=== PATIENT | male | born 1955 | race Caucasian/White ===

== ENCOUNTER 2017-06-23 13:39 | Inpatient (IN) | payer MEDICARE, MEDICAID ==
[~2017-06-23] VITALS: Ht 182.9 cm; Wt 101.2 kg
[2017-06-23] MEDS ORDERED: [UNRECOGNIZED DRUG - CODE] PO (14:58)
[2017-06-23] MEDS ORDERED: BENZ0.5T6 PO (14:58)
[2017-06-23] MEDS ORDERED: CLON2 PO (14:58)
[2017-06-23] MEDS ORDERED: DSS100 PO (14:58)
[2017-06-23] MEDS ORDERED: QUET400T PO (14:58)
[2017-06-23 18:29] LABS: BASOPHILS # (AUTO) 0.02 K/uL (0.00-0.20); BASOPHILS % (AUTO) 0.3 % (0.0-2.0); EOSINOPHILS # (AUTO) 0.14 K/uL (0.00-0.70); EOSINOPHILS % (AUTO) 2.05 % (1.0-6.0); HEMATOCRIT 38.2 % (41-53); HEMOGLOBIN 12.6 g/dL (13.5-17.5); LYMPHOCYTES # (AUTO) 0.9 K/uL (1.0-4.8); MEAN CORPUSCULAR HEMOGLOBIN 31.7 pg (26.0-34.0); MEAN CORPUSCULAR HGB CONC 32.8 G/dL (31.0-37.0); MEAN CORPUSCULAR VOLUME 96 fL (80-100); MONOCYTES % (AUTO) 15.6 % (2.0-9.0); NEUTROPHILS # (AUTO) 4.5 K/uL (1.8-7.7); NEUTROPHILS % (AUTO) 68.1 % (40.0-70.0); PLATELET COUNT (AUTO) 142 K/uL (150-450); RED BLOOD CELL COUNT(AUTO) 3.97 MIL/uL (4.50-5.90)
[2017-06-23 18:44] LABS: ANION GAP 9 mmol/L (8-16); CALCIUM, TOTAL 9.1 mg/dL (8.8-10.5); CARBON DIOXIDE 30 mmol/L (22-29); CHLORIDE 100 mmol/L (98-107); CREATININE 1.54 mg/dL (0.60-1.30); GLOMERULAR FILTR. RATE CALC 46 mL/min (>60); GLUCOSE,RANDOM 113 mg/dL (70-110); POTASSIUM 3.7 mmol/L (3.5-5.1); SODIUM SERUM 139 mmol/L (136-145); UREA NITROGEN, BLOOD 15 mg/dL (7-18)
[2017-06-23 18:50] LABS: ALANINE AMINOTRANSFERASE 45 U/L (12-78); ALBUMIN 3.5 g/dL (3.4-5.0); ALKALINE PHOSPHATASE 111 U/L (46-116); ASPARTATE AMINOTRANSFERASE 39 U/L (15-37); BILIRUBIN,TOTAL 0.3 mg/dL (0.1-1.0); TOTAL PROTEIN, SERUM 7.2 g/dL (6.4-8.2)
[2017-06-23] MEDS ORDERED: LORazepam 2 MG/ML VIAL IM ONE (19:15)
[2017-06-23] MEDS ORDERED: HALOPERIDOL LACTATE 5 MG/ML VIAL IM ONE (19:15)
[2017-06-23 20:42] VITALS: BP 152/82
[2017-06-23] MEDS ORDERED: ACETAMINOPHEN 325 MG TABLET PO PRN (22:15)
[2017-06-23] MEDS ORDERED: BACITRACIN 28.4 GM OINTMENT TP PRN (22:15)
[2017-06-24 02:46] VITALS: BP 135/88
[2017-06-24] MEDS: LORazepam 2 MG TABLET PO PRN ×2 (05:32→09:37)
[2017-06-24] MEDS: HALOPERIDOL 5 MG TABLET PO PRN ×2 (05:34→09:37)
[2017-06-24 08:08] VITALS: BP 124/72
[2017-06-24] MEDS ORDERED: ONDANSETRON HCL 4 MG TABLET PO PRN (08:30)
[2017-06-24] MEDS ORDERED: ALBUTEROL SULFATE HFA 90 MCG/PUFF 8 GM INHALER IH PRN (08:30)
[2017-06-24 08:32] LABS: CHOL/HDL RATIO 3.5 (4.2-7.3)
[2017-06-24] MEDS ORDERED: NICOTINE 21 MG/24 HOUR PATCH TD SCH (09:00)
[2017-06-24] MEDS: DOCUSATE SODIUM 250 MG CAPSULE PO SCH ×2 (09:37→16:31)
[2017-06-24] MEDS: NYSTATIN 15 GM POWDER BOTTLE TP SCH ×2 (09:38→16:31)
[2017-06-24] MEDS ORDERED: MAGNESIUM CITRATE 300 ML ORAL SOLUTION PO ONE ×2 (13:30→22:45)
[2017-06-24] MEDS: IBUPROFEN 600 MG TABLET PO PRN ×2 (14:43→20:48)
[2017-06-24 16:00] VITALS: BP 136/84
[2017-06-24] MEDS: ZOLPIDEM TARTRATE 10 MG TABLET PO PRN (20:48)
[2017-06-25 01:54] VITALS: BP 127/84
[2017-06-25] MEDS: IBUPROFEN 600 MG TABLET PO PRN ×2 (05:06→12:43)
[2017-06-25 08:27] VITALS: BP 140/67
[2017-06-25] MEDS: DOCUSATE SODIUM 250 MG CAPSULE PO SCH ×2 (09:04→16:52)
[2017-06-25] MEDS: QUEtiapine FUMARATE 200 MG TABLET PO SCH ×2 (09:04→16:52)
[2017-06-25] MEDS: LORazepam 2 MG TABLET PO PRN ×3 (09:05→17:07)
[2017-06-25] MEDS: NICOTINE POLACRILEX 2 MG LOZENGE PO PRN ×3 (09:06→16:23)
[2017-06-25] MEDS: NYSTATIN 15 GM POWDER BOTTLE TP SCH ×2 (09:06→16:52)
[2017-06-25 09:41] LABS: CALCIUM, TOTAL 9.4 mg/dL (8.8-10.5); CREATININE 1.71 mg/dL (0.60-1.30); POTASSIUM 4.6 mmol/L (3.5-5.1)
[2017-06-25 16:00] VITALS: BP 118/65
[2017-06-26] MEDS: LORazepam 2 MG TABLET PO PRN ×4 (00:01→16:55)
[2017-06-26] MEDS: ZOLPIDEM TARTRATE 10 MG TABLET PO PRN ×2 (00:01→20:54)
[2017-06-26] MEDS: HALOPERIDOL 5 MG TABLET PO PRN ×2 (00:01→17:30)
[2017-06-26 00:02] VITALS: BP 140/90
[2017-06-26] MEDS: IBUPROFEN 600 MG TABLET PO PRN (06:13)
[2017-06-26] MEDS: DOCUSATE SODIUM 250 MG CAPSULE PO SCH ×2 (08:26→16:55)
[2017-06-26] MEDS: QUEtiapine FUMARATE 200 MG TABLET PO SCH ×2 (08:26→16:54)
[2017-06-26] MEDS: NYSTATIN 15 GM POWDER BOTTLE TP SCH ×2 (08:29→16:57)
[2017-06-26 08:33] VITALS: BP 131/75
[2017-06-26] MEDS: NICOTINE POLACRILEX 2 MG LOZENGE PO PRN ×3 (09:18→17:51)
[2017-06-26 16:53] VITALS: BP 129/79
[2017-06-27 03:06] VITALS: BP 131/98
[2017-06-27] MEDS: IBUPROFEN 600 MG TABLET PO PRN ×2 (03:07→16:36)
[2017-06-27] MEDS: HALOPERIDOL 5 MG TABLET PO PRN ×2 (03:45→16:36)
[2017-06-27] MEDS: LORazepam 2 MG TABLET PO PRN ×3 (03:45→16:36)
[2017-06-27 08:00] VITALS: BP 129/88
[2017-06-27 08:15] LABS: CALCIUM, TOTAL 8.9 mg/dL (8.8-10.5); CREATININE 1.78 mg/dL (0.60-1.30)
[2017-06-27] MEDS: NYSTATIN 15 GM POWDER BOTTLE TP SCH ×2 (08:31→16:36)
[2017-06-27] MEDS: DOCUSATE SODIUM 250 MG CAPSULE PO SCH ×2 (08:31→16:36)
[2017-06-27] MEDS: QUEtiapine FUMARATE 200 MG TABLET PO SCH ×2 (08:31→16:36)
[2017-06-27 08:33] LABS: POTASSIUM 4.6 mmol/L (3.5-5.1)
[2017-06-27 10:15] VITALS: BP 130/88
[2017-06-27 16:34] VITALS: BP 127/83
[2017-06-27] MEDS: RisperiDONE 3 MG TABLET PO SCH (16:36)
[2017-06-27] MEDS: ZOLPIDEM TARTRATE 10 MG TABLET PO PRN (20:26)
[2017-06-27] MEDS ORDERED: DiphenhydrAMINE HCL 50 MG/ML VIAL ONE (22:34)
[2017-06-27] MEDS ORDERED: LORazepam 2 MG/ML VIAL ONE (22:34)
[2017-06-27] MEDS ORDERED: HALOPERIDOL LACTATE 5 MG/ML VIAL ONE (22:35)
[2017-06-27] MEDS ORDERED: LORazepam 2 MG/ML VIAL IM ONE (22:45)
[2017-06-27] MEDS ORDERED: DiphenhydrAMINE HCL 50 MG/ML VIAL IM ONE (22:45)
[2017-06-27] MEDS ORDERED: HALOPERIDOL LACTATE 5 MG/ML VIAL IM ONE (22:45)
[2017-06-28] MEDS: LORazepam 2 MG TABLET PO PRN ×4 (00:02→17:01)
[2017-06-28] MEDS: IBUPROFEN 600 MG TABLET PO PRN ×2 (00:02→06:08)
[2017-06-28] MEDS: HALOPERIDOL 5 MG TABLET PO PRN ×3 (00:02→17:01)
[2017-06-28 06:09] VITALS: BP 128/72
[2017-06-28 08:07] VITALS: BP 126/84
[2017-06-28] MEDS: DOCUSATE SODIUM 250 MG CAPSULE PO SCH ×2 (08:26→17:00)
[2017-06-28] MEDS: RisperiDONE 3 MG TABLET PO SCH ×2 (08:26→17:01)
[2017-06-28] MEDS: LITHIUM CARBONATE 300 MG CAPSULE PO SCH ×2 (08:26→17:01)
[2017-06-28] MEDS: QUEtiapine FUMARATE 200 MG TABLET PO SCH ×2 (08:27→17:01)
[2017-06-28 08:44] LABS: AMPHET/METH SCREEN,URINE NEGATIVE (NEGATIVE); BARBITURATE SCREEN, URINE NEGATIVE (NEGATIVE); BENZODIAZEPINES SCREEN,URINE NEGATIVE (NEGATIVE); CANNABINOID SCREEN,URINE NEGATIVE (NEGATIVE); COCAINE SCREEN,URINE NEGATIVE (NEGATIVE); METHADONE SCREEN, URINE NEGATIVE (NEGATIVE); OPIATE SCREEN,URINE NEGATIVE (NEGATIVE)
[2017-06-28 08:46] LABS: PHENCYCLIDINE SCREEN,URINE NEGATIVE (NEGATIVE)
[2017-06-28] MEDS: NYSTATIN 15 GM POWDER BOTTLE TP SCH ×2 (09:33→17:02)
[2017-06-28 16:32] VITALS: BP 125/81
[2017-06-28] MEDS: ZOLPIDEM TARTRATE 10 MG TABLET PO PRN (20:34)
[2017-06-29] MEDS: HALOPERIDOL 5 MG TABLET PO PRN ×3 (00:50→17:16)
[2017-06-29] MEDS: LORazepam 2 MG TABLET PO PRN ×3 (00:50→17:16)
[2017-06-29] MEDS: IBUPROFEN 600 MG TABLET PO PRN (00:50)
[2017-06-29 00:51] VITALS: BP 139/80
[2017-06-29] MEDS: QUEtiapine FUMARATE 200 MG TABLET PO SCH ×2 (08:09→17:16)
[2017-06-29] MEDS: NYSTATIN 15 GM POWDER BOTTLE TP SCH ×2 (08:09→17:16)
[2017-06-29] MEDS: LITHIUM CARBONATE 300 MG CAPSULE PO SCH ×2 (08:09→17:16)
[2017-06-29] MEDS: RisperiDONE 3 MG TABLET PO SCH ×2 (08:09→17:16)
[2017-06-29] MEDS: DOCUSATE SODIUM 250 MG CAPSULE PO SCH ×2 (08:09→17:16)
[2017-06-29 08:13] VITALS: BP 131/86
[2017-06-29 09:16] LABS: CALCIUM, TOTAL 9.1 mg/dL (8.8-10.5); CREATININE 1.57 mg/dL (0.60-1.30); POTASSIUM 4.1 mmol/L (3.5-5.1)
[2017-06-29] MEDS ORDERED: LORazepam 2 MG/ML VIAL IM ONE (12:45)
[2017-06-29] MEDS ORDERED: HALOPERIDOL LACTATE 5 MG/ML VIAL IM ONE (12:45)
[2017-06-29] MEDS ORDERED: DiphenhydrAMINE HCL 50 MG/ML VIAL IM ONE (12:45)
[2017-06-29] MEDS ORDERED: METH-417 PO (13:05)
[2017-06-29 17:13] VITALS: BP_SYST 106; BP_SYST 126; BP_DIAS 61; BP_DIAS 67
[2017-06-30] MEDS ORDERED: HALOPERIDOL LACTATE 5 MG/ML VIAL ONE ×2 (00:57→14:28)
[2017-06-30] MEDS ORDERED: LORazepam 2 MG/ML VIAL ONE ×2 (00:57→14:28)
[2017-06-30] MEDS ORDERED: DiphenhydrAMINE HCL 50 MG/ML VIAL ONE ×2 (00:58→14:29)
[2017-06-30] MEDS ORDERED: LORazepam 2 MG/ML VIAL IM ONE ×2 (01:15→14:45)
[2017-06-30] MEDS ORDERED: HALOPERIDOL LACTATE 5 MG/ML VIAL IM ONE ×2 (01:15→14:45)
[2017-06-30] MEDS ORDERED: DiphenhydrAMINE HCL 50 MG/ML VIAL IM ONE ×2 (01:15→14:45)
[2017-06-30 08:10] VITALS: BP 132/78
[2017-06-30] MEDS: QUEtiapine FUMARATE 200 MG TABLET PO SCH ×2 (08:34→16:55)
[2017-06-30] MEDS: LITHIUM CARBONATE 300 MG CAPSULE PO SCH ×2 (08:34→16:55)
[2017-06-30] MEDS: RisperiDONE 3 MG TABLET PO SCH ×2 (08:34→16:55)
[2017-06-30] MEDS: DOCUSATE SODIUM 250 MG CAPSULE PO SCH ×2 (08:34→16:55)
[2017-06-30] MEDS: NYSTATIN 15 GM POWDER BOTTLE TP SCH ×2 (08:40→16:55)
[2017-06-30 08:50] LABS: CALCIUM, TOTAL 9.4 mg/dL (8.8-10.5); CREATININE 1.56 mg/dL (0.60-1.30); POTASSIUM 4.1 mmol/L (3.5-5.1)
[2017-06-30 15:30] VITALS: BP 144/65
[2017-06-30 16:00] VITALS: BP 138/65
[2017-06-30] MEDS: LORazepam 2 MG TABLET PO PRN ×2 (16:55→20:56)
[2017-06-30] MEDS: ZOLPIDEM TARTRATE 10 MG TABLET PO PRN (20:56)
[2017-07-01] MEDS: LORazepam 2 MG TABLET PO PRN ×4 (04:47→20:26)
[2017-07-01] MEDS: HALOPERIDOL 5 MG TABLET PO PRN ×3 (04:47→23:38)
[2017-07-01 06:25] VITALS: BP 135/68
[2017-07-01 08:00] VITALS: BP 137/67
[2017-07-01] MEDS: NYSTATIN 15 GM POWDER BOTTLE TP SCH ×2 (09:59→16:22)
[2017-07-01] MEDS: RisperiDONE 3 MG TABLET PO SCH ×2 (09:59→16:22)
[2017-07-01] MEDS: LITHIUM CARBONATE 300 MG CAPSULE PO SCH ×2 (09:59→16:22)
[2017-07-01] MEDS: QUEtiapine FUMARATE 200 MG TABLET PO SCH ×2 (09:59→16:22)
[2017-07-01] MEDS: DOCUSATE SODIUM 250 MG CAPSULE PO SCH ×2 (09:59→16:22)
[2017-07-01 16:13] VITALS: BP 119/83
[2017-07-01] MEDS: ZOLPIDEM TARTRATE 10 MG TABLET PO PRN (20:26)
[2017-07-02 05:50] VITALS: BP 125/90
[2017-07-02] MEDS: IBUPROFEN 600 MG TABLET PO PRN (06:41)
[2017-07-02 08:00] VITALS: BP 112/79
[2017-07-02] MEDS: NYSTATIN 15 GM POWDER BOTTLE TP SCH ×2 (08:22→18:30)
[2017-07-02] MEDS: LITHIUM CARBONATE 300 MG CAPSULE PO SCH ×2 (08:23→18:29)
[2017-07-02] MEDS: RisperiDONE 3 MG TABLET PO SCH ×2 (08:23→18:29)
[2017-07-02] MEDS: DOCUSATE SODIUM 250 MG CAPSULE PO SCH ×2 (08:23→18:29)
[2017-07-02] MEDS: HALOPERIDOL 5 MG TABLET PO PRN (08:23)
[2017-07-02] MEDS: QUEtiapine FUMARATE 200 MG TABLET PO SCH ×2 (08:23→18:29)
[2017-07-02] MEDS: LORazepam 2 MG TABLET PO PRN (08:23)
[2017-07-02] MEDS ORDERED: HALOPERIDOL LACTATE 5 MG/ML VIAL ONE (09:28)
[2017-07-02] MEDS ORDERED: LORazepam 2 MG/ML VIAL ONE (09:28)
[2017-07-02] MEDS ORDERED: DiphenhydrAMINE HCL 50 MG/ML VIAL ONE (09:29)
[2017-07-02] MEDS ORDERED: LORazepam 2 MG/ML VIAL IM ONE (09:45)
[2017-07-02] MEDS ORDERED: HALOPERIDOL LACTATE 5 MG/ML VIAL IM ONE (09:45)
[2017-07-02] MEDS ORDERED: DiphenhydrAMINE HCL 50 MG/ML VIAL IM ONE (09:45)
[2017-07-02 16:05] VITALS: BP 125/83
[2017-07-03 05:06] VITALS: BP 122/81
[2017-07-03 08:06] VITALS: BP 128/82
[2017-07-03] MEDS: QUEtiapine FUMARATE 200 MG TABLET PO SCH ×2 (08:56→17:32)
[2017-07-03] MEDS: LITHIUM CARBONATE 300 MG CAPSULE PO SCH ×3 (08:56→17:32)
[2017-07-03] MEDS: RisperiDONE 3 MG TABLET PO SCH ×2 (08:56→17:32)
[2017-07-03] MEDS: DOCUSATE SODIUM 250 MG CAPSULE PO SCH ×2 (08:56→17:32)
[2017-07-03] MEDS: NYSTATIN 15 GM POWDER BOTTLE TP SCH ×2 (08:57→17:33)
[2017-07-03] MEDS: LORazepam 2 MG TABLET PO PRN ×2 (12:05→17:32)
[2017-07-03 16:00] VITALS: BP 127/78
[2017-07-03] MEDS: HALOPERIDOL 5 MG TABLET PO PRN (17:32)
[2017-07-04 06:13] VITALS: BP 128/80
[2017-07-04 08:13] LABS: BASOPHILS # (AUTO) 0.05 K/uL (0.00-0.20); BASOPHILS % (AUTO) 0.6 % (0.0-2.0); EOSINOPHILS # (AUTO) 0.22 K/uL (0.00-0.70); EOSINOPHILS % (AUTO) 2.54 % (1.0-6.0); HEMATOCRIT 44.5 % (41-53); HEMOGLOBIN 14.5 g/dL (13.5-17.5); LYMPHOCYTES # (AUTO) 1.1 K/uL (1.0-4.8); LYMPHOCYTES % (AUTO) 12.1 % (22.0-44.0); MEAN CORPUSCULAR HEMOGLOBIN 31.3 pg (26.0-34.0); MEAN CORPUSCULAR HGB CONC 32.6 G/dL (31.0-37.0); MEAN CORPUSCULAR VOLUME 96 fL (80-100); MONOCYTES # (AUTO) 0.8 K/uL (0.1-1.0); MONOCYTES % (AUTO) 9.2 % (2.0-9.0); NEUTROPHILS # (AUTO) 6.6 K/uL (1.8-7.7); NEUTROPHILS % (AUTO) 75.6 % (40.0-70.0); PLATELET COUNT (AUTO) 196 K/uL (150-450); RED BLOOD CELL COUNT(AUTO) 4.63 MIL/uL (4.50-5.90); RED CELL DISTRIBUTION WIDTH 15.8 % (11.5-14.5)
[2017-07-04 08:18] LABS: LITHIUM 0.87 mmol/L (0.60-1.20)
[2017-07-04 08:33] LABS: CALCIUM, TOTAL 10.2 mg/dL (8.8-10.5); CREATININE 1.68 mg/dL (0.60-1.30); PHOSPHORUS 3.9 mg/dL (2.5-4.9); POTASSIUM 4.2 mmol/L (3.5-5.1)
[2017-07-04 08:59] VITALS: BP 136/89
[2017-07-04] MEDS: LORazepam 2 MG TABLET PO PRN ×2 (08:59→17:22)
[2017-07-04] MEDS: QUEtiapine FUMARATE 200 MG TABLET PO SCH ×2 (08:59→17:22)
[2017-07-04] MEDS: DOCUSATE SODIUM 250 MG CAPSULE PO SCH ×2 (08:59→17:22)
[2017-07-04] MEDS: NYSTATIN 15 GM POWDER BOTTLE TP SCH ×2 (08:59→17:22)
[2017-07-04] MEDS: RisperiDONE 3 MG TABLET PO SCH ×2 (08:59→17:22)
[2017-07-04] MEDS: LITHIUM CARBONATE 300 MG CAPSULE PO SCH ×3 (08:59→17:22)
[2017-07-04 16:00] VITALS: BP 130/85
[2017-07-04] MEDS: HALOPERIDOL 5 MG TABLET PO PRN (17:22)
[2017-07-05 06:32] VITALS: BP 138/70
[2017-07-05] MEDS: RisperiDONE 3 MG TABLET PO SCH ×2 (09:22→17:53)
[2017-07-05] MEDS: LITHIUM CARBONATE 300 MG CAPSULE PO SCH ×3 (09:22→17:53)
[2017-07-05] MEDS: NYSTATIN 15 GM POWDER BOTTLE TP SCH ×2 (09:22→17:53)
[2017-07-05] MEDS: LORazepam 2 MG TABLET PO PRN ×2 (09:22→14:47)
[2017-07-05] MEDS: HALOPERIDOL 5 MG TABLET PO PRN ×2 (09:22→14:46)
[2017-07-05] MEDS: QUEtiapine FUMARATE 200 MG TABLET PO SCH ×2 (09:22→17:53)
[2017-07-05] MEDS: DOCUSATE SODIUM 250 MG CAPSULE PO SCH ×2 (09:22→17:53)
[2017-07-05 16:00] VITALS: BP 124/77
[2017-07-06 05:41] VITALS: BP 132/85
[2017-07-06] MEDS: NYSTATIN 15 GM POWDER BOTTLE TP SCH ×2 (09:00→17:23)
[2017-07-06] MEDS: DOCUSATE SODIUM 250 MG CAPSULE PO SCH ×2 (09:00→17:23)
[2017-07-06] MEDS: RisperiDONE 3 MG TABLET PO SCH (09:33)
[2017-07-06] MEDS: LITHIUM CARBONATE 300 MG CAPSULE PO SCH ×3 (09:33→17:23)
[2017-07-06] MEDS: QUEtiapine FUMARATE 200 MG TABLET PO SCH (09:33)
[2017-07-06] MEDS: LORazepam 2 MG TABLET PO PRN ×2 (09:33→17:23)
[2017-07-06] MEDS ORDERED: DiphenhydrAMINE HCL 50 MG/ML VIAL IM ONE (13:30)
[2017-07-06] MEDS ORDERED: LORazepam 2 MG/ML VIAL IM ONE (13:30)
[2017-07-06] MEDS ORDERED: HALOPERIDOL LACTATE 5 MG/ML VIAL IM ONE (13:30)
[2017-07-06 16:30] VITALS: BP 123/78
[2017-07-06] MEDS: RisperiDONE 4 MG TABLET PO SCH (17:23)
[2017-07-06] MEDS: HALOPERIDOL 5 MG TABLET PO PRN (17:23)
[2017-07-06] MEDS: ZOLPIDEM TARTRATE 10 MG TABLET PO PRN (21:22)
[2017-07-06] MEDS: QUEtiapine FUMARATE 300 MG TABLET PO SCH (21:22)
[2017-07-07 03:10] VITALS: BP 120/76
[2017-07-07] MEDS: LORazepam 2 MG TABLET PO PRN ×3 (03:12→16:55)
[2017-07-07] MEDS: HALOPERIDOL 5 MG TABLET PO PRN ×2 (03:12→16:55)
[2017-07-07 08:07] VITALS: BP 124/72
[2017-07-07] MEDS: LITHIUM CARBONATE 300 MG CAPSULE PO SCH ×3 (09:19→16:55)
[2017-07-07] MEDS: RisperiDONE 4 MG TABLET PO SCH ×2 (09:20→16:55)
[2017-07-07] MEDS: DOCUSATE SODIUM 250 MG CAPSULE PO SCH ×2 (09:20→16:55)
[2017-07-07] MEDS: QUEtiapine FUMARATE 200 MG TABLET PO SCH (09:20)
[2017-07-07] MEDS: NYSTATIN 15 GM POWDER BOTTLE TP SCH ×2 (09:21→16:55)
[2017-07-07 16:00] VITALS: BP 121/76
[2017-07-07] MEDS: QUEtiapine FUMARATE 300 MG TABLET PO SCH (20:28)
[2017-07-08 03:00] VITALS: BP 128/80
[2017-07-08] MEDS: HALOPERIDOL 5 MG TABLET PO PRN ×2 (04:24→17:04)
[2017-07-08] MEDS: LORazepam 2 MG TABLET PO PRN ×4 (04:24→17:04)
[2017-07-08 08:28] VITALS: BP 115/65
[2017-07-08] MEDS: NYSTATIN 15 GM POWDER BOTTLE TP SCH ×2 (08:49→17:04)
[2017-07-08] MEDS: RisperiDONE 4 MG TABLET PO SCH ×2 (08:49→17:04)
[2017-07-08] MEDS: QUEtiapine FUMARATE 200 MG TABLET PO SCH (08:49)
[2017-07-08] MEDS: DOCUSATE SODIUM 250 MG CAPSULE PO SCH ×2 (08:49→17:04)
[2017-07-08] MEDS: LITHIUM CARBONATE 300 MG CAPSULE PO SCH ×3 (08:49→17:04)
[2017-07-08 16:00] VITALS: BP 117/72
[2017-07-08] MEDS: QUEtiapine FUMARATE 300 MG TABLET PO SCH (20:58)
[2017-07-09 06:49] VITALS: BP 135/83
[2017-07-09] MEDS: LITHIUM CARBONATE 300 MG CAPSULE PO SCH (09:08)
[2017-07-09] MEDS: RisperiDONE 4 MG TABLET PO SCH (09:08)
[2017-07-09] MEDS: NYSTATIN 15 GM POWDER BOTTLE TP SCH (09:08)
[2017-07-09] MEDS: LORazepam 2 MG TABLET PO PRN (09:08)
[2017-07-09] MEDS: HALOPERIDOL 5 MG TABLET PO PRN (09:08)
[2017-07-09] MEDS: DOCUSATE SODIUM 250 MG CAPSULE PO SCH (09:08)
[2017-07-09] MEDS: QUEtiapine FUMARATE 200 MG TABLET PO SCH (09:08)
[2017-07-09 10:00] LABS: ALBUMIN 4.4 g/dL (3.4-5.0); BILIRUBIN,TOTAL 0.4 mg/dL (0.1-1.0); CALCIUM, TOTAL 10.2 mg/dL (8.8-10.5); CREATININE 3.09 mg/dL (0.60-1.30); POTASSIUM 4.3 mmol/L (3.5-5.1); TOTAL PROTEIN, SERUM 8.4 g/dL (6.4-8.2)
[2017-07-09] MEDS ORDERED: LACTULOSE 20 GM/30 ML SOLUTION UDCUP PO ONE (10:00)
[2017-07-09 11:02] VITALS: BP 118/79
== END 2017-07-09 13:49 | disposition short-term general hospital (02) | DRG 885 ==
LOC: EMS 13:57 → B3A 19:40
PROVIDERS: ADMIT Psychiatry & Neurology Psychiatry; ATTEND Psychiatry & Neurology Psychiatry
DX: F25.9 Schizoaffective disorder, unspecified (principal); D69.6 Thrombocytopenia, unspecified; N17.9 Acute kidney failure, unspecified; E46 Unspecified protein-calorie malnutrition; R45.851 Suicidal ideations; N18.3 Chronic kidney disease, stage 3 (moderate); B35.6 Tinea cruris; F17.210 Nicotine dependence, cigarettes, uncomplicated; F31.9 Bipolar disorder, unspecified; F41.9 Anxiety disorder, unspecified; J44.9 Chronic obstructive pulmonary disease, unspecified; K59.00 Constipation, unspecified; M19.90 Unspecified osteoarthritis, unspecified site; M54.9 Dorsalgia, unspecified; R26.81 Unsteadiness on feet; Z71.6 Tobacco abuse counseling; K46.9 Unspecified abdominal hernia without obstruction or gangrene; S41.119A Laceration without foreign body of unspecified upper arm, initial encounter; X58.XXXA Exposure to other specified factors, initial encounter; Y93.89 Activity, other specified; Y92.89 Other specified places as the place of occurrence of the external cause; Y99.8 Other external cause status; Z68.30 Body mass index [BMI] 30.0-30.9, adult
CPT/HCPCS: 83735; 84100; 96372; 99285; 99406; G0480; J1200; J1630; J2060

== ENCOUNTER 2017-07-16 19:30 | Inpatient (IN) | payer MEDICARE, MEDICAID ==
[~2017-07-16] VITALS: Ht 182.9 cm; Wt 106.0 kg
[~2017-07-16 19:30] MED LIST: BENZ0.5T6 PO; CLON2 PO; DSS100 PO; METH-417 PO; QUET400T PO
[2017-07-16 20:00] VITALS: BP 141/74
[2017-07-16] MEDS ORDERED: HALOPERIDOL 10 MG TABLET PO SCH (21:00)
[2017-07-16] MEDS: ZOLPIDEM TARTRATE 10 MG TABLET PO PRN (21:34)
[2017-07-16] MEDS ORDERED: BENZOCAINE/MENTHOL LOZENGE MM PRN (21:45)
[2017-07-16] MEDS ORDERED: ONDANSETRON HCL 4 MG TABLET PO PRN (21:45)
[2017-07-16] MEDS ORDERED: MAG HYDROX/AL HYDROX/SIMETH ES 30 ML SUSPENSION UDCUP PO PRN (21:45)
[2017-07-16] MEDS ORDERED: LOPERAMIDE HCL 2 MG CAPSULE PO PRN (21:45)
[2017-07-16] MEDS ORDERED: MAGNESIUM HYDROXIDE SUSPENSION 30 ML UDCUP PO PRN (21:45)
[2017-07-16] MEDS ORDERED: CloNIDine HCL 0.1 MG TABLET PO PRN (21:45)
[2017-07-16] MEDS ORDERED: BACITRACIN 28.4 GM OINTMENT TP PRN (21:45)
[2017-07-16] MEDS ORDERED: PETROLATUM,WHITE 71 GM JELLY TP PRN (21:45)
[2017-07-16] MEDS ORDERED: ALBUTEROL SULFATE HFA 90 MCG/PUFF 8 GM INHALER IH PRN (21:45)
[2017-07-17] MEDS: LORazepam 2 MG TABLET PO PRN ×2 (00:45→18:14)
[2017-07-17 06:32] VITALS: BP 119/64
[2017-07-17 08:50] VITALS: BP 125/94
[2017-07-17] MEDS: DOCUSATE SODIUM 100 MG CAPSULE PO SCH (09:32)
[2017-07-17] MEDS: OMEPRAZOLE 20 MG CAPSULE PO SCH (09:32)
[2017-07-17] MEDS: NICOTINE 14 MG/24 HOUR PATCH TD SCH (09:37)
[2017-07-17 18:05] VITALS: BP 133/84
[2017-07-17] MEDS: ZOLPIDEM TARTRATE 10 MG TABLET PO PRN (20:24)
[2017-07-17] MEDS ORDERED: HALOPERIDOL 10 MG TABLET PO SCH (21:00)
[2017-07-18] MEDS: LORazepam 2 MG TABLET PO PRN ×3 (01:13→17:56)
[2017-07-18] MEDS: HALOPERIDOL 5 MG TABLET PO PRN ×2 (01:14→17:56)
[2017-07-18 01:24] VITALS: BP 132/97
[2017-07-18] MEDS: ACETAMINOPHEN 325 MG TABLET PO PRN (03:30)
[2017-07-18 07:23] LABS: EOSINOPHILS % (AUTO) 2.5 % (1.0-6.0); HEMATOCRIT 41.7 % (41-53); HEMOGLOBIN 13.9 g/dL (13.5-17.5); LYMPHOCYTES # (AUTO) 1.8 K/uL (1.0-4.8); MEAN CORPUSCULAR HGB CONC 33.3 G/dL (31.0-37.0); MEAN CORPUSCULAR VOLUME 93 fL (80-100); MONOCYTES # (AUTO) 1.3 K/uL (0.1-1.0); MONOCYTES % (AUTO) 10.5 % (2.0-9.0); NEUTROPHILS # (AUTO) 9.1 K/uL (1.8-7.7); PLATELET COUNT (AUTO) 186 K/uL (150-450); RED BLOOD CELL COUNT(AUTO) 4.48 MIL/uL (4.50-5.90); RED CELL DISTRIBUTION WIDTH 15.9 % (11.5-14.5)
[2017-07-18 08:30] LABS: ALBUMIN 3.7 g/dL (3.4-5.0); BILIRUBIN,TOTAL 0.4 mg/dL (0.1-1.0); CREATININE 1.69 mg/dL (0.60-1.30); PHOSPHORUS 4.2 mg/dL (2.5-4.9); TOTAL PROTEIN, SERUM 7.6 g/dL (6.4-8.2)
[2017-07-18] MEDS: NICOTINE 14 MG/24 HOUR PATCH TD SCH (08:38)
[2017-07-18] MEDS: DOCUSATE SODIUM 100 MG CAPSULE PO SCH (08:39)
[2017-07-18] MEDS: OMEPRAZOLE 20 MG CAPSULE PO SCH (08:39)
[2017-07-18 09:13] VITALS: BP 120/82
[2017-07-18 16:24] VITALS: BP 131/81
[2017-07-18] MEDS: HALOPERIDOL 5 MG TABLET PO SCH (20:37)
[2017-07-18] MEDS: ZOLPIDEM TARTRATE 10 MG TABLET PO PRN (20:37)
[2017-07-19] MEDS: HALOPERIDOL 5 MG TABLET PO PRN ×2 (03:26→18:25)
[2017-07-19 03:27] VITALS: BP 128/78
[2017-07-19] MEDS: LORazepam 2 MG TABLET PO PRN ×3 (03:27→18:25)
[2017-07-19] MEDS: OMEPRAZOLE 20 MG CAPSULE PO SCH (08:21)
[2017-07-19] MEDS: DOCUSATE SODIUM 100 MG CAPSULE PO SCH (08:21)
[2017-07-19] MEDS: NICOTINE 14 MG/24 HOUR PATCH TD SCH (08:21)
[2017-07-19 13:05] VITALS: BP 128/81
[2017-07-19 18:17] VITALS: BP 119/84
[2017-07-19 19:55] VITALS: BP 126/66
[2017-07-19] MEDS: IBUPROFEN 600 MG TABLET PO PRN (19:57)
[2017-07-19] MEDS: HALOPERIDOL 5 MG TABLET PO SCH (20:00)
[2017-07-19 20:55] VITALS: BP 132/72
[2017-07-19] MEDS: ZOLPIDEM TARTRATE 10 MG TABLET PO PRN (21:01)
[2017-07-20] MEDS: HALOPERIDOL 5 MG TABLET PO PRN ×2 (00:45→07:40)
[2017-07-20] MEDS: LORazepam 2 MG TABLET PO PRN ×3 (00:45→20:52)
[2017-07-20 02:34] VITALS: BP 134/72
[2017-07-20 07:26] LABS: CALCIUM, TOTAL 8.9 mg/dL (8.8-10.5); CREATININE 1.55 mg/dL (0.60-1.30); POTASSIUM 4.4 mmol/L (3.5-5.1)
[2017-07-20 08:00] VITALS: BP 128/65
[2017-07-20] MEDS: DOCUSATE SODIUM 100 MG CAPSULE PO SCH (08:07)
[2017-07-20] MEDS: OMEPRAZOLE 20 MG CAPSULE PO SCH (08:07)
[2017-07-20] MEDS: NICOTINE 14 MG/24 HOUR PATCH TD SCH (08:07)
[2017-07-20 16:09] VITALS: BP 134/84
[2017-07-20 17:00] LABS: APPEARANCE,URINE CLOUDY (CLEAR); BILIRUBIN,URINE NEGATIVE (NEGATIVE); GLUCOSE, URINE (UA) NEGATIVE (NEGATIVE); KETONES,URINE NEGATIVE (NEGATIVE); LEUKOCYTE ESTERASE ,URINE LARGE (NEGATIVE); OCCULT BLOOD,URINE SMALL (NEGATIVE); PROTEIN,URINE NEGATIVE (NEGATIVE); UROBILINOGEN,URINE 0.2 mg/dL (<=1.0)
[2017-07-20 17:08] LABS: OSMOLALITY,URINE 148 mOS/kg (50-1200)
[2017-07-20 17:19] LABS: BACTERIA,URINE Moderate /HPF (None Seen); NITRATE,URINE POSITIVE (NEGATIVE); SQUAMOUS EPITHELIAL CELL,UR Few /LPF (None Seen); WBC,URINE 51-100 /HPF (0-5)
[2017-07-20] MEDS: HALOPERIDOL 5 MG TABLET PO SCH (20:32)
[2017-07-21] MEDS: ZOLPIDEM TARTRATE 10 MG TABLET PO PRN ×2 (01:02→20:48)
[2017-07-21] MEDS: LORazepam 2 MG TABLET PO PRN ×3 (01:03→14:00)
[2017-07-21 01:08] VITALS: BP 131/65
[2017-07-21] MEDS: DOCUSATE SODIUM 100 MG CAPSULE PO SCH (09:00)
[2017-07-21] MEDS: NICOTINE 14 MG/24 HOUR PATCH TD SCH (09:00)
[2017-07-21] MEDS: OMEPRAZOLE 20 MG CAPSULE PO SCH (09:00)
[2017-07-21] MEDS: HALOPERIDOL 5 MG TABLET PO PRN ×2 (09:01→14:00)
[2017-07-21] MEDS: CIPROFLOXACIN HCL 500 MG TABLET PO SCH ×2 (10:28→16:57)
[2017-07-21 10:41] VITALS: BP 130/86
[2017-07-21 10:42] VITALS: BP 130/96
[2017-07-21] MEDS: ACETAMINOPHEN 325 MG TABLET PO PRN (14:00)
[2017-07-21 19:21] VITALS: BP 138/90
[2017-07-21] MEDS: IBUPROFEN 600 MG TABLET PO PRN (19:21)
[2017-07-21 19:32] VITALS: BP 135/79
[2017-07-21] MEDS: HALOPERIDOL 5 MG TABLET PO SCH (19:59)
[2017-07-22 03:40] VITALS: BP 122/80
[2017-07-22] MEDS: LORazepam 2 MG TABLET PO PRN ×3 (03:49→19:57)
[2017-07-22] MEDS: IBUPROFEN 600 MG TABLET PO PRN ×3 (03:51→18:47)
[2017-07-22 07:07] LABS: CREATININE 1.56 mg/dL (0.60-1.30); POTASSIUM 4.2 mmol/L (3.5-5.1)
[2017-07-22] MEDS: OMEPRAZOLE 20 MG CAPSULE PO SCH (08:34)
[2017-07-22] MEDS: CIPROFLOXACIN HCL 500 MG TABLET PO SCH ×2 (08:34→15:51)
[2017-07-22] MEDS: DOCUSATE SODIUM 100 MG CAPSULE PO SCH (08:34)
[2017-07-22] MEDS: NICOTINE 14 MG/24 HOUR PATCH TD SCH (08:37)
[2017-07-22 08:55] VITALS: BP 132/75
[2017-07-22] MEDS: MAGNESIUM SULFATE 454 GM BOX TP SCH (11:00)
[2017-07-22 11:25] VITALS: BP 130/77
[2017-07-22 12:39] VITALS: BP 126/72
[2017-07-22] MEDS: HALOPERIDOL 5 MG TABLET PO PRN (15:51)
[2017-07-22 18:49] VITALS: BP 144/72
[2017-07-22] MEDS: ZOLPIDEM TARTRATE 10 MG TABLET PO PRN (21:29)
[2017-07-22] MEDS: HALOPERIDOL 5 MG TABLET PO SCH (21:29)
[2017-07-23 05:00] VITALS: BP 116/78
[2017-07-23] MEDS: IBUPROFEN 600 MG TABLET PO PRN ×2 (05:03→16:34)
[2017-07-23 08:06] VITALS: BP 127/77
[2017-07-23] MEDS: DOCUSATE SODIUM 100 MG CAPSULE PO SCH (09:49)
[2017-07-23] MEDS: OMEPRAZOLE 20 MG CAPSULE PO SCH (09:49)
[2017-07-23] MEDS: NICOTINE 14 MG/24 HOUR PATCH TD SCH (09:52)
[2017-07-23 10:30] VITALS: BP 132/76
[2017-07-23] MEDS: LORazepam 2 MG TABLET PO PRN (10:35)
[2017-07-23] MEDS: HALOPERIDOL 5 MG TABLET PO PRN (10:35)
[2017-07-23] MEDS: ACETAMINOPHEN 325 MG TABLET PO PRN (10:35)
[2017-07-23 11:45] VITALS: BP 129/83
[2017-07-23] MEDS ORDERED: LORazepam 2 MG/ML VIAL IM ONE (12:00)
[2017-07-23] MEDS ORDERED: HALOPERIDOL LACTATE 5 MG/ML VIAL IM ONE (12:00)
[2017-07-23] MEDS ORDERED: DiphenhydrAMINE HCL 50 MG/ML VIAL IM ONE (12:00)
[2017-07-23 16:03] LABS: APPEARANCE,URINE CLEAR (CLEAR); BILIRUBIN,URINE NEGATIVE (NEGATIVE); GLUCOSE, URINE (UA) NEGATIVE (NEGATIVE); KETONES,URINE NEGATIVE (NEGATIVE); LEUKOCYTE ESTERASE ,URINE TRACE (NEGATIVE); NITRATE,URINE NEGATIVE (NEGATIVE); OCCULT BLOOD,URINE NEGATIVE (NEGATIVE); PROTEIN,URINE TRACE (NEGATIVE); UROBILINOGEN,URINE 0.2 mg/dL (<=1.0)
[2017-07-23 16:28] LABS: RBC,URINE None Seen /HPF (0-2)
[2017-07-23 16:29] LABS: BACTERIA,URINE Rare /HPF (None Seen); SQUAMOUS EPITHELIAL CELL,UR Few /LPF (None Seen)
[2017-07-23] MEDS: MAGNESIUM SULFATE 454 GM BOX TP SCH (16:33)
[2017-07-23 16:38] VITALS: BP 133/76
[2017-07-23] MEDS: ZOLPIDEM TARTRATE 10 MG TABLET PO PRN (20:18)
[2017-07-23] MEDS: HALOPERIDOL 5 MG TABLET PO SCH (20:18)
[2017-07-24 03:48] VITALS: BP 131/85
[2017-07-24 08:15] VITALS: BP 146/83
[2017-07-24] MEDS: OMEPRAZOLE 20 MG CAPSULE PO SCH (08:24)
[2017-07-24] MEDS: DOCUSATE SODIUM 100 MG CAPSULE PO SCH (08:24)
[2017-07-24] MEDS: NICOTINE 14 MG/24 HOUR PATCH TD SCH (08:28)
[2017-07-24] MEDS: MAGNESIUM SULFATE 454 GM BOX TP SCH (08:29)
[2017-07-24] MEDS: HALOPERIDOL 5 MG TABLET PO PRN (13:48)
[2017-07-24] MEDS: LORazepam 2 MG TABLET PO PRN (13:48)
[2017-07-24 16:27] VITALS: BP 133/82
[2017-07-24] MEDS: TERBINAFINE HCL 1% 30 GM CREAM TP SCH (18:48)
[2017-07-24] MEDS: HALOPERIDOL 5 MG TABLET PO SCH (20:07)
[2017-07-25 04:54] VITALS: BP 151/97
[2017-07-25] MEDS: IBUPROFEN 600 MG TABLET PO PRN (05:55)
[2017-07-25 07:30] LABS: CALCIUM, TOTAL 9.1 mg/dL (8.8-10.5); CREATININE 1.5 mg/dL (0.60-1.30); POTASSIUM 4.2 mmol/L (3.5-5.1)
[2017-07-25 08:15] VITALS: BP 127/97
[2017-07-25] MEDS: DOCUSATE SODIUM 100 MG CAPSULE PO SCH (08:32)
[2017-07-25] MEDS: OMEPRAZOLE 20 MG CAPSULE PO SCH (08:32)
[2017-07-25] MEDS: HALOPERIDOL 5 MG TABLET PO PRN ×2 (08:33→13:06)
[2017-07-25] MEDS: MAGNESIUM SULFATE 454 GM BOX TP SCH (08:33)
[2017-07-25] MEDS: TERBINAFINE HCL 1% 30 GM CREAM TP SCH (08:33)
[2017-07-25] MEDS: LORazepam 2 MG TABLET PO PRN ×2 (08:33→13:06)
[2017-07-25] MEDS: NICOTINE 14 MG/24 HOUR PATCH TD SCH (08:37)
[2017-07-25 16:11] VITALS: BP 132/82
[2017-07-25] MEDS: HALOPERIDOL 5 MG TABLET PO SCH (20:44)
[2017-07-26 00:11] VITALS: BP 137/77
[2017-07-26] MEDS: ZOLPIDEM TARTRATE 10 MG TABLET PO PRN ×2 (00:14→23:59)
[2017-07-26] MEDS: HALOPERIDOL 5 MG TABLET PO PRN ×2 (00:14→10:44)
[2017-07-26] MEDS: ACETAMINOPHEN 325 MG TABLET PO PRN (03:21)
[2017-07-26] MEDS: LORazepam 2 MG TABLET PO PRN ×4 (03:21→23:58)
[2017-07-26] MEDS: NICOTINE 14 MG/24 HOUR PATCH TD SCH (08:08)
[2017-07-26] MEDS: TERBINAFINE HCL 1% 30 GM CREAM TP SCH (08:08)
[2017-07-26] MEDS: DOCUSATE SODIUM 100 MG CAPSULE PO SCH (08:08)
[2017-07-26] MEDS: OMEPRAZOLE 20 MG CAPSULE PO SCH (08:08)
[2017-07-26] MEDS: MAGNESIUM SULFATE 454 GM BOX TP SCH (08:14)
[2017-07-26 09:14] VITALS: BP 145/108
[2017-07-26 16:45] VITALS: BP 138/78
[2017-07-26 19:11] VITALS: BP 142/91
[2017-07-26] MEDS: IBUPROFEN 600 MG TABLET PO PRN (19:11)
[2017-07-26] MEDS: HALOPERIDOL 5 MG TABLET PO SCH (20:21)
[2017-07-27] VITALS: BP 138/79
[2017-07-27] MEDS: IBUPROFEN 600 MG TABLET PO PRN ×2 (04:48→13:59)
[2017-07-27] MEDS: LORazepam 2 MG TABLET PO PRN ×3 (07:44→20:54)
[2017-07-27] MEDS: HALOPERIDOL 5 MG TABLET PO PRN ×2 (07:44→16:15)
[2017-07-27] MEDS: NICOTINE 14 MG/24 HOUR PATCH TD SCH (08:29)
[2017-07-27] MEDS: DOCUSATE SODIUM 100 MG CAPSULE PO SCH (08:29)
[2017-07-27] MEDS: OMEPRAZOLE 20 MG CAPSULE PO SCH (08:29)
[2017-07-27 08:30] VITALS: BP 133/82
[2017-07-27] MEDS: TERBINAFINE HCL 1% 30 GM CREAM TP SCH (08:30)
[2017-07-27] MEDS: MAGNESIUM SULFATE 454 GM BOX TP SCH (09:12)
[2017-07-27 13:59] VITALS: BP 129/87
[2017-07-27 16:07] VITALS: BP 131/82
[2017-07-27 18:00] VITALS: BP 142/77
[2017-07-27] MEDS: ACETAMINOPHEN 325 MG TABLET PO PRN (18:05)
[2017-07-27 19:00] VITALS: BP 136/72
[2017-07-27] MEDS: HALOPERIDOL 5 MG TABLET PO SCH (20:53)
[2017-07-27] MEDS: ZOLPIDEM TARTRATE 10 MG TABLET PO PRN (20:54)
[2017-07-28 07:25] VITALS: BP 118/83
[2017-07-28] MEDS: HALOPERIDOL 5 MG TABLET PO PRN (07:27)
[2017-07-28] MEDS: LORazepam 2 MG TABLET PO PRN ×2 (07:27→12:38)
[2017-07-28] MEDS: IBUPROFEN 600 MG TABLET PO PRN (07:28)
[2017-07-28] MEDS: OMEPRAZOLE 20 MG CAPSULE PO SCH (08:01)
[2017-07-28] MEDS: TERBINAFINE HCL 1% 30 GM CREAM TP SCH (08:01)
[2017-07-28] MEDS: DOCUSATE SODIUM 100 MG CAPSULE PO SCH (08:01)
[2017-07-28] MEDS: NICOTINE 14 MG/24 HOUR PATCH TD SCH (08:01)
[2017-07-28] MEDS ORDERED: HALO5 PO (10:37)
[2017-07-28] MEDS ORDERED: OMEP20 PO (10:39)
[2017-07-28] MEDS ORDERED: TERB12CR TP (10:43)
[2017-07-28] MEDS: ACETAMINOPHEN 325 MG TABLET PO PRN (12:38)
[2017-07-28 16:15] VITALS: BP 128/78
== END 2017-07-28 17:30 | disposition home or self-care (01) | DRG 885 ==
LOC: 3EX 19:30
PROVIDERS: ADMIT Internal Medicine; ATTEND Psychiatry & Neurology Psychiatry
DX: F25.9 Schizoaffective disorder, unspecified (principal); N17.9 Acute kidney failure, unspecified; E87.0 Hyperosmolality and hypernatremia; E83.41 Hypermagnesemia; R45.851 Suicidal ideations; F17.200 Nicotine dependence, unspecified, uncomplicated; B35.1 Tinea unguium; B95.8 Unspecified staphylococcus as the cause of diseases classified elsewhere; N39.0 Urinary tract infection, site not specified; E86.0 Dehydration; F29 Unspecified psychosis not due to a substance or known physiological condition; F41.9 Anxiety disorder, unspecified; G47.00 Insomnia, unspecified; I12.9 Hypertensive chronic kidney disease with stage 1 through stage 4 chronic kidney disease, or unspecified chronic kidney disease; J44.9 Chronic obstructive pulmonary disease, unspecified; M19.90 Unspecified osteoarthritis, unspecified site; N18.9 Chronic kidney disease, unspecified; Z88.8 Allergy status to other drugs, medicaments and biological substances; Z79.899 Other long term (current) drug therapy
CPT/HCPCS: 83735; 83935; 84100; 87081; 87086; 92610; J1200; J1630; J2060